=== PATIENT | female | born 1965 | race Caucasian/White ===

== ENCOUNTER → 2019-05-10 | Outpatient (CLI) | payer OTHER ==
--- NOTE | 2019-05-12 08:29 | DIREP ---
PROCEDURE:MRI SPINE LUMBAR W/O COMPARISON:None. 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 Images were performed without intravenous gadolinium contrast. FINDINGS: ALIGNMENT:Normal. VERTEBRA:No fracture, pars defect, or osseous lesion. CORD/CAUDA EQUINA:Normal size, contour, and signal intensity. PARASPINAL AREA:Normal with no visible mass. OTHER:Facet joint arthropathy. LUMBAR DISC LEVELS T12-L1:No significant disc abnormality, spinal stenosis, or foraminal stenosis. L1-L2:No significant disc abnormality, spinal stenosis, or foraminal stenosis. L2-L3:No significant disc abnormality, spinal stenosis, or foraminal stenosis. L3-L4:No significant disc abnormality, spinal stenosis, or foraminal stenosis. L4-L5:No significant disc abnormality, spinal stenosis, or foraminal stenosis. L5-S1:No significant disc abnormality, spinal stenosis, or foraminal stenosis. CONCLUSION:Facet joint arthropathy. No neural structure impingement. Dictated by: Santos Cartwright M.D. on 05/12/2019 at 08:15 AM
== END | disposition home or self-care (01) ==
LOC: RAD 16:05
PROVIDERS: ATTEND Emergency Medicine
DX: M12.88 Other specific arthropathies, not elsewhere classified, other specified site (principal); M54.16 Radiculopathy, lumbar region
CPT/HCPCS: 72148

== ENCOUNTER → 2022-03-07 | Outpatient (CLI) | payer OTHER ==
--- NOTE | 2022-03-09 10:42 | DIREP ---
PROCEDURE:MRI SPINE LUMBAR W/O COMPARISON:[facility], MR, MRI SPINE LUMBAR W/O, 05/10/2019, 04:35 PM. 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 Images were performed without intravenous gadolinium contrast. FINDINGS: ALIGNMENT:Normal. VERTEBRA:Normal vertebral height. Mild Schmorl's node endplate degenerative changes. Mild anterior and lateral osteophyte formation. Normal marrow signal. CORD/CAUDA EQUINA:Normal size, contour, and signal intensity. PARASPINAL AREA:Normal with no visible mass. OTHER:None. LUMBAR DISC LEVELS T12-L1:Mild bilateral facet arthrosis. L1-L2:Mild bilateral facet arthrosis. Small central posterior disc protrusion. No neural foraminal narrowing. L2-L3:Mild bilateral facet arthrosis. L3-L4:Mild bilateral facet arthrosis. Small broad-based posterior disc osteophyte complex. No neural foraminal narrowing. L4-L5:Mild bilateral facet arthrosis. Broad-based posterior disc osteophyte complex. No neural foraminal narrowing. L5-S1:Mild bilateral facet arthrosis. CONCLUSION:1. Multilevel degenerative and discogenic changes without acute bony abnormality. 2. No neural foraminal narrowing. Dictated by: Ovidio Higgins M.D. on 03/09/2022 at 10:38 AM
== END | disposition home or self-care (01) ==
LOC: RAD 13:31
PROVIDERS: ATTEND Emergency Medicine
DX: M47.27 Other spondylosis with radiculopathy, lumbosacral region (principal); M54.51 Vertebrogenic low back pain
CPT/HCPCS: 72148